=== PATIENT | female | born 2000 | race Caucasian/White ===

== ENCOUNTER 2024-04-30 06:56 | Emergency (ER) | payer OTHER, MEDICAID, SELFPAY ==
[2024-04-30 06:58] VITALS: BMI 27.3
[2024-04-30 07:05] VITALS: BP 121/81; PULSE 120; RESP 20; TEMP 37; O2SAT 98
[2024-04-30 07:24] VITALS: BP 119/77; PULSE 113; RESP 20; TEMP 36.7; O2SAT 99
[2024-04-30 07:52] VITALS: BP 117/83; PULSE 103; RESP 18; TEMP 37.1; O2SAT 98
--- NOTE | 2024-04-30 09:03 | CHAP ---
Patient expressed gratitude for visit and prayer.
[2024-04-30] MEDS: IBUPROFEN TAB 600 MG TABLET PO (09:20)
[2024-04-30 10:02] LABS: Strep A Rapid Negative (Negative)
--- NOTE | 2024-04-30 10:15 | PD.EDADULT ---
ED General RME/HPI General Chief complaint: Headache Stated complaint: HEADACHE,THROAT PAIN XTODAY HX SEIZURE Time Seen by Provider: 04/30/24 07:06 Arrival date/time: 04/30/24 06:56 RME / HPI RME / HPI narrative: 24-year-old female with a history of congenital deafness (cochlear implant), nonneurologic seizure like activity, who presents with approximately 1 day of right sided ear pain and sore throat. She feels like she had a seizure earlier today. She denies fevers chills or sweats. She denies cough. she notes sick contact and her significant other/partner. Related Data Home Medications ?Medication ?Instructions ?Recorded ?Confirmed cyclobenzaprine 5 mg tablet 5 mg PO DAILY Muscle spasm 01/10/24 01/10/24 hydrocodone 10 mg-acetaminophen 1 tab PO TID pain 01/10/24 01/10/24 325 mg tablet meloxicam 7.5 mg tablet 7.5 mg PO DAILY anti inflamatory 01/10/24 01/10/24 montelukast 10 mg tablet 10 mg PO DAILY 01/10/24 01/10/24 ondansetron HCl 4 mg tablet 4 mg PO Q6H nausea and vomiting 01/10/24 01/10/24 Allergies Allergy/AdvReac Type Severity Reaction Status Date / Time latex Allergy Intermediate Rash Verified 04/30/24 07:01 codeine AdvReac Severe Unresponsiv Verified 04/30/24 07:01 e Review of Systems Review of Systems Systems Reviewed: All systems reviewed, normal except as documented ED Exam Narrative Physical exam: GENERAL APPEARANCE: AxOx4, generally well-appearing, no acute distress, normal voice HEENT: NC, AT. MMM. EOMI, clear conjunctiva, implant on the left ear, right ear shows no redness, good light reflex, clear-colored effusion, oropharynx with slightly red swollen right tonsil, nonpurulent, left tonsil is within normal limits, pharyngeal arches without effacement, uvula is midline NECK: Supple without lymphadenopathy. No stiffness or restricted ROM. HEART: Normal rate and regular rhythm, normal S1/S1, no m/r/g LUNGS: CTAB, moving air well. No crackles or wheezes are heard. ABDOMEN: Soft, nontender, nondistended with good bowel sounds heard. MUSCULOSKELETAL: FROM of all major joints, no chest tenderness NEUROLOGICAL: Grossly nonfocal. Alert and oriented, moving all 4 extremities. CN not formally tested but appear grossly intact. Observed to ambulate with normal gait. Skin: Warm and dry without any rash. Course Course Course Narrative: Patient made clinically stable emerged part without signs of acute distress. Patient signed AMA, refusing COVID and flu testing. Quality Measures none Orders Category Date Time Status Bedside COVID-19 Antigen Test NOW Care 04/30/24 08:52 Active Bedside Influenza A&B Antigen Test NOW Care 04/30/24 08:52 Active Strep A Rapid Stat Lab 04/30/24 09:12 Completed Ibuprofen Tab [Motrin Tab] Med 04/30/24 08:51 Discontinued 600 mg PO X1 ONE Vital Signs Vital signs: Vital Signs Temperature 98.6 F 04/30/24 07:05 Pulse Rate 120 H 04/30/24 07:05 Respiratory Rate 20 04/30/24 07:05 Blood Pressure 121/81 04/30/24 07:05 Pulse Oximetry (%) 98 04/30/24 07:05 Oxygen Delivery Method Room Air 04/30/24 07:05 SpO2 98% on room air, not hypoxic MDM Patient data External records reviewed:: [facility] previous records Clinical information provided by:: patient and friend Social determinants that could affect healthcare access:: none Patient has the following chronic illnesses:: None How is presenting disease/condition affected by chronic disease/condition?: no chronic disease Evaluation data The following diagnostics were reviewed and interpreted by me:: lab results Lab and/or radiology exams considered but not ordered:: None Interpretation Summary: As per narrative Medications Medications considered but not ordered:: None Medication administrations:: Medication Administration History Discontinued Medications Ibuprofen (Ibuprofen Tab 600 Mg Tablet) 600 mg PO X1 ONE Stop: 04/30/24 08:52 Last Admin: 04/30/24 09:20 Dose: 600 mg Documented By: MARTIN Above Consultations Consultation(s) initiated? (list below): No Diagnosis Differential Diagnosis ED Complaint MDM: URI, otitis media, otitis effusion Most likely diagnosis given after review of the tests above:: See below Admission Indicated Admission indicated?: not indicated Explain why admission is indicated or not indicated:: As per narrative Admission Request Was there a request for admission?: No Disposition Plan Disposition Plan: other (specify) (AGAINST MEDICAL ADVICE) Medical Decision Making MDM Narrative MDM Narrative: Ms. Davidson is a clinically well-appearing female who presents to the emergency department with a days worth of right ear fullness and right throat pain. On exam she does appear to have a mild tonsillitis, it is nonpurulent without significant fevers, low suspicion for strep throat. Rapid strep testing was negative. Patient is refusing COVID and influenza testing, she advised she can take an [id number] home and in the signing out AMA. She is otherwise clinically well-appearing, stable, has normal neurologic exam and is stable for outpatient. Differential Diagnosis Differential Diagnosis: URI, otitis media, otitis effusion Lab Data Labs: Lab Results 04/30/24 Range/Units 09:12 Group A Strep Rapid Negative (Negative) Discharge Plan Plan Patient Disposition: Left Against Medical Advice Prescriptions/Referrals Prescriptions/Med Rec: No Action meloxicam 7.5 mg Tablet 7.5 mg PO DAILY ondansetron HCl 4 mg tablet 4 mg PO Q6H Patient Comments: take 1 tablet by mouth every 4 hours if needed for 30 DAYS hydrocodone-acetaminophen 10-325 mg tablet 1 tab PO TID Patient Comments: take 1 tablet by mouth every 8 hours if needed montelukast 10 mg tablet 10 mg PO DAILY Patient Comments: take 1 tablet by mouth once daily cyclobenzaprine 5 mg tablet 5 mg PO DAILY Patient Comments: take 1 tablet by mouth twice a day if needed for muscle spasm Referrals: Nuris([facility])Obie [facility] [Primary Care Provider] - In 1 week Problem List Clinical Impression: Acute viral pharyngitis Patient/Caregiver Discharge Instructions Print Language: Burkinan
== END 2024-04-30 10:30 | disposition left against medical advice (07) ==
PROVIDERS: Emergency Provider Emergency Medicine; PCP Nurse Practitioner Family
DX: J02.8 Acute pharyngitis due to other specified organisms (principal); B97.89 Other viral agents as the cause of diseases classified elsewhere
CPT/HCPCS: 87651; 99283; A9270

== ENCOUNTER 2025-05-14 14:09 | Emergency (ER) | payer MEDICAID, SELFPAY ==
[2025-05-14] MEDS: levETIRAcetam INJ 100 MG/ML VIAL 5ML 1000 MG IVP (14:21)
--- NOTE | 2025-05-14 14:27 | EDNOTE_ITS ---
<Statement entered by Denise Davila MD - 05/25/25 06:33> As co-signing physician, I was present and available for consult prn. I concur with the plan and care as documented by the midlevel provider. ED General RME/HPI General Chief complaint: Seizure Stated complaint: SEIZURE, NUMBNESS/TINGLING L) SIDE, UNABLE TO MOVE Time Seen by Provider: 05/14/25 14:15 Arrival date/time: 05/14/25 14:09 CC: Seizure-like activity HPI boyfriend states patient started this morning not feeling right sleeping longer than usual. Patient presents to the ER promptly going into a floppy mode. But immediately woke up afterwards was answering questions by lipreading. Patient is deaf with a cochlear implant and can hear limited decibels. Currently the patient states she has a headache. Patient does not know when her last menstrual cycle was. Patient states neurologist took her off Keppra. 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 Related Data Home Medications ?Medication ?Instructions ?Recorded ?Confirmed cyclobenzaprine 5 mg tablet 5 mg PO DAILY Muscle spasm 01/10/24 01/10/24 hydrocodone 10 mg-acetaminophen 1 tab PO TID pain 12/1301/10/24 325 mg tablet meloxicam 7.5 mg tablet 7.5 mg PO DAILY anti inflama tory 01/10/24 01/10/24 montelukast 10 mg tablet 10 mg PO DAILY 01/10/2412/13 ondansetron HCl 4 mg tablet 4 mg PO Q6H nausea and vom iting 01/10/24 01/10/24 Allergies Allergy/AdvReac Type Severity Reaction Status Date / Time latex Allergy Intermediate Rash Verified 05/14/25 14:12 codeine AdvReac Severe Unresponsiv Verified 05/14/25 14:12 e Review of Systems Review of Systems Narrative Review of Systems: GEN: No fever, no chills, no weight loss EYES: No discharge, no visual changes, no pain HEENT: No ear pain, no congestion, no sore throat PULM: No shortness of breath, no cough, no congestion CV: No chest pain, no dyspnea on exertion, no palpitations GI: No nausea, no vomiting, no diarrhea, no pain, no constipation : No frequency, no urgency, no dysuria MUSC/SKEL: No joint pain, no back pain SKIN: No rash PSYCH: No hallucinations, no depression HEME/LYMPH: No easy bleeding or bruising tendencies NEURO: No weakness, no headache Past Medical History Past Medical History NEUROLOGIC: Positive Neurological Disorders and Seizures CARDIAC: Positive Cardiac Disorders (POTS); Negative Congestive Heart Failure RESPIRATORY: Negative Chronic Obstructive Pulmonary Disease (COPD) GASTROINTESTINAL: Negative Gastrointestinal Disorders GENITOURINARY: Negative Genitourinary Disorders or Renal Disease MUSCULOSKELETAL: Negative Musculoskeletal Disorders ENT: Positive Deafness ENDOCRINE: Positive Endocrine Disorders and Systemic Lupus Erythematosus; Negative Diabetes Mellitus Type 1 or Diabetes Mellitus Type 2 HEMATOLOGIC: Negative Blood Disorders PSYCHO/SOCIAL: Positive Recreational Drug Use Social History SMOKING STATUS: Never smoker SUBSTANCE USE: does not use ED Exam Narrative Physical exam: [General: Not in any acute distress Head normocephalic HEENT: Eyes pupils are PERRLA EOMs are intact mouth pink moist membranes uvula is midline swallow symmetrical. Phonation is normal. Within acceptable limits Neck is supple nontender Chest equal chest rise nontender to palpation Respiratory: Clear to auscultation no wheezes crackles or rubs CV: Rate rhythm is regular no murmurs rubs or clicks Abdomen is distended secondary to body habitus soft nontender no masses positive bowel sounds all 4 quadrants Back: No CVA tenderness no spinous process tenderness from cervical spine thoracic and lumbar spine Skin: Intact no petechiae rash induration ulceration or crepitus Extremities: Moving all extremity against resistance cap refill less than 2 seco nds neurosensory intact Neuro: Awake alert oriented x3 Glascow coma 15 no focal deficits] intermittent slurred speech with clear crisp speech. Patient complains of being confused. Unable to recall her daily medications or when her last menstrual cycle was. Course Course Course Narrative: Observation of these seizures , show the patient has no postictal period is awake immediately. 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 Discussion with the patient we discussed the possibility of these occur more when she ovulates or just before her menses as she is due for menses in the next 24 hours. Patient states they will follow-up outpatient with neurology for the symptoms. Quality Measures none Orders Category Date Time Status Saline [Insert IV] NOW Care 05/14/25 14:16 Active Alcohol, Blood Medical Stat Lab 05/14/25 14:20 Completed CBC Stat Lab 05/14/25 14:20 Completed CMP [Comprehensive Metabolic Panel] Stat Lab 05/14/25 14:20 Completed Drug Screen,Urine Stat Lab 05/14/25 14:56 Completed HCG Qualitative,Urine Stat Lab 05/14/25 14:51 Completed Urinalysis Stat Lab 05/14/25 14:51 Completed LORazepam [Ativan Inj] Med 05/14/25 14:13 Discontinued 2 mg IVP X1 ONE Ondansetron Inj [Zofran Inj] Med 05/14/25 14:25 Discontinued 4 mg IVP X1 ONE levETIRAcetam INJ [Keppra Inj] Med 05/14/25 14:13 Discontinued 1,000 mg IVP X1 ONE Vital Signs Vital signs: Vital Signs Temperature 98.6 F 05/14/25 14:54 Pulse Rate 90 05/14/25 14:54 Respiratory Rate 13 05/14/25 14:54 Blood Pressure 120/79 05/14/25 14:54 Pulse Oximetry (%) 100 05/14/25 14:54 Oxygen Delivery Method Room Air 05/14/25 14:54 Discharge Plan Plan Patient Disposition: HOME (Self Care) Patient condition on transfer: Stable Prescriptions/Referrals Prescriptions/Med Rec: No Action meloxicam 7.5 mg Tablet 7.5 mg PO DAILY ondansetron HCl 4 mg tablet 4 mg PO Q6H Patient Comments: take 1 tablet by mouth every 4 hours if needed for 30 DAYS hydrocodone-acetaminophen 10-325 mg tablet 1 tab PO TID Patient Comments: take 1 tablet by mouth every 8 hours if needed montelukast 10 mg tablet 10 mg PO DAILY Patient Comments: take 1 tablet by mouth once daily cyclobenzaprine 5 mg tablet 5 mg PO DAILY Patient Comments: take 1 tablet by mouth twice a day if needed for muscle spasm Referrals: Govind Conti MD [Physician, Family Practice] - In 1 week Problem List Clinical Impression: Seizure Patient/Caregiver Discharge Instructions Education Materials: ED Seizure, Recurrent (Adult) Additional Instructions: I suspect these are pseudoseizures, please follow the pattern and keep a log of the seizures how long they last for and when they are in the diet of day to see if you can establish a pattern if it is related to something you do on a daily basis or on your monthly cycle. Follow-up as stated with the neurologist and stand for. If there is a worsening of symptoms follow-up with your primary care doctor or return the emergency room for reevaluation. Print Language: Gibraltarian Stand Alone Forms: Kajal Award Info., Work/School Release, Patient Portal Info Letter AINSLEY/ARTHUR Supervising Physician CRISTOBAL Supervising Physician: Victor Manuel Rey ENP MDM Clinical Information Provided by: patient Medical Records reviewed [facility] Meds/Rx considered, not ordered None Labs/Rad/Tests considered, not ordered None Chronic Illness/Social Conditions Explain: Deafness pseudoseizures EKG EKG not done Labs Labs: interpreted by ia Lab(s) Interpretation(s): CBC shows no acute leukocytosis anemia thrombocytopenia CMP shows chloride of 108 and BUN of 8 no other significant Radha imbalances renal impairment transaminitis or T. bili elevation Urine is negative is negative Talk screen is positive for opiates and marijuana Imaging Imaging interpretation: none Medication Administration(s) none Medication Administration History Discontinued Medications Levetiracetam (Levetiracetam Inj 100 Mg/Ml Vial 5ml) 1,000 mg IVP X1 ONE Stop: 05/14/25 14:14 Last Admin: 05/14/25 14:21 Dose: 1,000 mg Documented By: BROOKS Lorazepam (Lorazepam 2 Mg/Ml Vial) 2 mg IVP X1 ONE Stop: 05/14/25 14:14 Last Admin: 05/14/25 14:23 Dose: Not Given Documented By: BROOKS Non-Admin Reason: Cancelled by Provider Ondansetron HCl (Ondansetron Inj 2 Mg/Ml Inj 2 Ml) 4 mg IVP X1 ONE; Protocol Stop: 05/14/25 14:26 Last Admin: 05/14/25 14:32 Dose: 4 mg Documented By: BROOKS Diagnosis Differential Diagnosis ED Complaint MDM: Pseudoseizures and seizures to status epilepticus.
[2025-05-14 14:32] LABS: Basophils # (Auto) 0.1 Thou/mm3 (0.0-0.2); Basophils % (Auto) 1 % (0-2.5); Eosinophils # (Auto) 0.2 Thou/mm3 (0.0-0.5); Eosinophils % (Auto) 3 % (0-10); Hematocrit 38.8 % (36.0-46.0); Hemoglobin 13.8 g/dL (12.0-16.0); Immature Granulocytes Auto 0.03 Thou/mm3 (0.00-0.00); Lymphocytes # (Auto) 3.0 Thou/mm3 (1.0-4.8); Lymphocytes % (Auto) 34 % (10-50); Mean Corpuscular HGB Conc 35.6 g/dl (31.0-37.0); Mean Corpuscular Hemoglobin 31.2 pg (25.0-35.0); Mean Corpuscular Volume 88 fL (80-100); Monocytes # (Auto) 0.6 Thou/mm3 (0.0-0.8); Monocytes % (Auto) 6 % (0-12); Neutrophils # (Auto) 4.9 Thou/mm3 (1.8-7.7); Neutrophils % (Auto) 56 % (37-80); Nucleated Red Blood Cell # 0.00 Thou/mm3 (0.00-0.00); Nucleated Red Blood Cell % 0 /100 WBC (0); Platelet Count 311 Thou/mm3 (140-440); RDW Standard Deviation 40.3 fL (36.4-46.3); Red Blood Count 4.42 Miln/mm3 (4.00-5.20); White Blood Count 8.8 Thou/mm3 (3.6-11.0)
[2025-05-14] MEDS: ONDANSETRON INJ 2 MG/ML INJ 2 ML 4 MG IVP (14:32)
[2025-05-14 14:54] VITALS: BP 120/79; PULSE 90; RESP 13; TEMP 37; O2SAT 100
[2025-05-14 15:01] LABS: Alanine Aminotransferase < 7 U/L (10-49); Albumin, Serum 4.6 gm/dL (3.5-5.0); Albumin/Globulin Ratio 1.7 (1.2-2.2); Alcohol, Blood Medical < 10.0 mg/dL (0-10.0); Alkaline Phosphatase 59 U/L (46-116); Anion Gap 9 (7-16); Aspartate Amino Transferase 14 U/L (0-34); BUN/Creatinine Ratio 10 Ratio (12-20); Bilirubin,Total 0.4 mg/dL (0.3-1.2); Blood Urea Nitrogen 8 mg/dL (9-23); Calcium 9.2 mg/dL (8.3-10.6); Calcium (Corrected) 9.2 mg/dL (8.5-10.1); Carbon Dioxide 24.9 mMol/L (20.0-31.0); Chloride 108 mMol/L (98-107); Creatinine (Component) 0.8 mg/dL (0.6-1.3); Estimated Creatinine Clearance 119.1 mL/min (>60); Globulin 2.7 gm/dL (2.3-3.5); Glucose 101 mg/dL (74-106); Osmolality,Calculated 281 (275-295); Potassium 3.7 mMol/L (3.4-5.1); Sodium 142 mMol/L (136-145); Total Protein 7.3 gm/dL (5.7-8.2); eGFR > 60 See Note
[2025-05-14 15:05] LABS: Collection Type, Urine Clean Catch
[2025-05-14 15:14] LABS: Bilirubin,Urine Negative (Negative); Blood,Urine Negative (Negative); Color,Urine Yellow (Lt Yel-Yel); Glucose, Urine Negative (Negative); Ketones,Urine Negative (Negative); Leukocyte Esterase,Urine Negative (Negative); Nitrite,Urine Negative (Negative); PH,Urine 6.5 (5.0-7.0); Protein,Urine 1+ (Neg - Trace); RBC,Urine 4 /hpf (0-3); Specific Gravity,Urine 1.030 (1.001-1.035); Squamous Epithelial Cell,Urine 4 /hpf (0-5); Urobilinogen,Urine 3.0 mg/dL (0.0-1.0); WBC,Urine 2 /hpf (0-5)
[2025-05-14 15:15] LABS: Clarity,Urine Hazy (Clear/Hazy)
[2025-05-14 15:21] LABS: HCG Qualitative,Urine Negative
[2025-05-14 15:41] LABS: Amphetamine/Methamp Scrn,U Negative (Negative); Barbiturate Screen,Urine Negative (Negative); Benzodiazepines Screen,Urine Negative (Negative); Benzoylecgonine Screen, Ur Negative (Negative); Fentanyl Screen,Urine Negative (Negative); Opiate Screen,Urine Positive (Negative); THC Screen,Urine Positive (Negative)
[2025-05-14 16:15] VITALS: BP 128/69; PULSE 98; RESP 18; TEMP 36.4; O2SAT 100
== END 2025-05-14 16:16 | disposition home or self-care (01) ==
LOC: SERX 16:04
PROVIDERS: Registered Nurse General Practice; Emergency Provider Emergency Medicine
DX: R56.9 Unspecified convulsions (principal)
CPT/HCPCS: 36415; 80053; 80307; 80320; 81001; 81025; 85025; 96374; 96375; 99282; J1953; J2405; G0480